=== PATIENT | female | born 1990 | race Caucasian/White ===

== ENCOUNTER 2017-02-03 12:35 | Emergency (ER) | payer OTHER, MEDICAID ==
[2017-02-03 14:52] VITALS: BP 140/70
--- NOTE | 2017-02-03 20:18 | ER ---
DATE SEEN: 02/03/2017 CHIEF COMPLAINT: Vaginal bleeding. HISTORY OF PRESENT ILLNESS: A 27-year-old female, G2, P1, at 17 weeks, who presents with vaginal bleeding since this morning, painless with no nausea or vomiting. PAST MEDICAL HISTORY: No active medical problems. REVIEW OF SYSTEMS: All other systems were negative. PHYSICAL EXAMINATION: GENERAL: She is not in distress. VITAL SIGNS: Afebrile. ABDOMEN: Soft and benign. LABORATORY DATA: CBC, basic profile pending. UA had lots of white cell count and large leukocyte esterase. The membrane rupture was positive and ultrasound showed no amniotic fluid, but the heart tone was 120. IMPRESSION: 1. Very premature rupture of membranes. 2. Impending miscarriage. PLAN: I discussed options of treatment. I discussed this with Dr. Gautam, [facility], number was given for her to call tomorrow to discuss further options. If symptoms get worse, especially worsening bleeding or pain or fever or foul smelling discharge, she should come to the emergency room. Time seen was 1300 hours. /[id number] LAINE/RICHARD
--- NOTE | 2017-02-04 11:57 | US ---
INDICATION: Vaginal bleeding - fetus measured 12 weeks at 1000 hours today, at which time patient's water broke, no bleeding after urination and has passes clots. OB ULTRASOUND: Multiple ultrasonic images revealed a single intrauterine gestation appearing to be in breech presentation, head on the maternal left, with heart motion appearing regular at 118 BPM. No visible pockets of amniotic fluid were identified, compatible with severe oligohydramnios and compatible with amniotic fluid loss. Although the heart rate was regular, no motion was noted. The placenta is posterior without evidence of previa. It is also fundal, grade 1. No abruption was seen. Head circumference/abdominal circumference ratios averaged 17 weeks 1 day, which would be compatible with an CARMEN by ultrasound of 07/13/2017. The historical gestational age was estimated at 19 weeks. IMPRESSION: 1. Severe Oligohydramnios. 2. Viable fetus, but with no motion, possibly at this time due to complete lack of amniotic fluid. Gestation by ultrasound at 17 weeks 1 day. MTDD
== END 2017-02-03 14:40 | disposition home or self-care (01) ==
LOC: FB.ED 12:35
DX: O42.912 Preterm premature rupture of membranes, unspecified as to length of time between rupture and onset of labor, second trimester (principal); Z3A.17 17 weeks gestation of pregnancy
CPT/HCPCS: 36415; 76801; 76817; 80048; 81001; 84112; 85025; 87086; 99283; 99284